=== PATIENT | male | born 1950 | race Caucasian/White ===

== ENCOUNTER → 2017-03-12 | Outpatient (CLI) | payer OTHER ==
[~2017-03-12] MED LIST: ASPI-650 PO
[2017-03-12 10:47] LABS: BLOOD UREA NITROGEN 17 mg/dL (7-18)
== END | disposition home or self-care (01) ==
LOC: STAR 09:01
PROVIDERS: ATTEND Orthopaedic Surgery
DX: Z01.818 Encounter for other preprocedural examination (principal); R94.31 Abnormal electrocardiogram [ECG] [EKG]; M17.11 Unilateral primary osteoarthritis, right knee
CPT/HCPCS: 36415; 80048; 81003; 85025; 87081; 93005

== ENCOUNTER 2017-03-23 05:36 | Inpatient (IN) | payer OTHER ==
[~2017-03-23] VITALS: Ht 172.7 cm; Wt 80.0 kg
[2017-03-23] MEDS ORDERED: LACTATED RINGERS 1,000 ML IV SCH (06:07)
[2017-03-23] MEDS ORDERED: ROPIvacaine/PF 0.5%, 30 ML ONE (06:24)
[2017-03-23] MEDS ORDERED: KETOROLAC 60 MG/2 ML ONE ×2 (06:30→08:33)
[2017-03-23] MEDS ORDERED: TRANEXAMIC ACID 100 MG/ML, 10ML ONE (06:31)
[2017-03-23] MEDS ORDERED: VANCOMYCIN 1,000 MG ONE (06:31)
[2017-03-23] MEDS ORDERED: ROPIvacaine/PF 0.2%, 20 ML ONE ×2 (06:31→08:33)
[2017-03-23] MEDS ORDERED: EPINEPHRINE 1 MG/ML, 1ML ONE ×2 (06:31→08:33)
[2017-03-23] MEDS ORDERED: FENTANYL PF 250 MCG/5ML ONE (06:32)
[2017-03-23] MEDS ORDERED: MIDAZOLAM 1 MG/ML, 2ML ONE (06:32)
[2017-03-23] MEDS ORDERED: ONDANSETRON 2MG/ML, 2ML ONE (07:07)
[2017-03-23] MEDS ORDERED: DEXAMETHASONE 4 MG/ML, 1ML ONE (07:07)
[2017-03-23] MEDS ORDERED: CEFAZOLIN 1,000 MG ONE (07:07)
[2017-03-23] MEDS ORDERED: PROPOFOL 10 MG/ML, 20ML ONE (07:07)
[2017-03-23] MEDS ORDERED: hydrALAzine 20 MG/ML, 1ML IV PRN (08:00)
[2017-03-23] MEDS ORDERED: MEPERIDINE/PF 25MG/0.5ML IVPush PRN (08:00)
[2017-03-23] MEDS ORDERED: METOPROLOL 1 MG/ML, 5ML IV PRN (08:00)
[2017-03-23] MEDS ORDERED: ALBUTEROL SULFATE 2.5 MG/3 ML NPPB PRN (08:00)
[2017-03-23] MEDS ORDERED: ACETAMINOPHEN 325 MG TABLET PO PRN (08:00)
[2017-03-23] MEDS ORDERED: MIDAZOLAM 1 MG/ML, 2ML IV PRN (08:00)
[2017-03-23] MEDS ORDERED: OXYcodone 5 MG/5 ML ORAL.SOL UDC PO PRN (08:00)
[2017-03-23] MEDS ORDERED: HYDROmorphone 1 MG/ML, 1ML IV PRN ×2 (08:00→09:00)
[2017-03-23] MEDS ORDERED: ONDANSETRON 2MG/ML, 2ML IVPush PRN (08:00)
[2017-03-23] MEDS ORDERED: LABETALOL 5MG/ML, 20ML IV PRN (08:00)
[2017-03-23] MEDS ORDERED: FENTANYL PF 100 MCG/2ML IV PRN (08:00)
[2017-03-23] MEDS ORDERED: EPHEDRINE 50 MG/ML, 1ML IVPush PRN (08:00)
[2017-03-23] MEDS ORDERED: PROMETHAZINE 25 MG/ML, 1ML IV PRN (08:00)
[2017-03-23] MEDS ORDERED: SODIUM CHLORIDE 0.9% 50 ML ONE (08:33)
[2017-03-23] MEDS ORDERED: PROMETHAZINE 12.5 MG SUPP PR PRN (09:00)
[2017-03-23] MEDS ORDERED: ONDANSETRON 2MG/ML, 2ML IV PRN (09:00)
[2017-03-23] MEDS ORDERED: DIAZEPAM 5 MG TABLET PO PRN (09:00)
[2017-03-23] MEDS ORDERED: ONDANSETRON 4 MG TABLET PO PRN (09:00)
[2017-03-23] MEDS ORDERED: SENNA/DOCUSATE TABLET PO PRN (09:00)
[2017-03-23] MEDS ORDERED: OXYcodone IR 5MG TABLET PO PRN (09:00)
[2017-03-23] MEDS: OXYcodone IR 5MG TABLET PO SCH ×4 (09:00→22:32)
[2017-03-23] MEDS ORDERED: MAGNESIUM HYDROXIDE 8%, 30ML UDC PO PRN (09:00)
[2017-03-23] MEDS ORDERED: ALUMINUM/MAG/SIMETHICONE 30 ML UDC PO PRN (09:00)
[2017-03-23] MEDS ORDERED: BISACODYL 10 MG SUPP PR PRN (09:00)
[2017-03-23] MEDS ORDERED: SCOPOLAMINE PATCH, 1.5MG PATCH.TD72 TD SCH (09:00)
[2017-03-23] MEDS ORDERED: PROMETHAZINE 25 MG/ML, 1ML IM PRN (09:00)
[2017-03-23] MEDS ORDERED: DIPHENHYDRAMINE 25 MG CAPSULE PO PRN (09:00)
[2017-03-23] MEDS: PREGABALIN 75 MG CAPSULE PO SCH ×2 (09:00→21:01)
[2017-03-23] MEDS: ACETAMINOPHEN 650 MG/20.3 ML UDC PO SCH ×4 (09:00→22:32)
[2017-03-23] MEDS ORDERED: ZOLPIDEM 5MG TABLET PO PRN (09:00)
[2017-03-23] MEDS ORDERED: TRANEXAMIC ACID 1,000 MG in SODIUM CHLORIDE 0.9% 100 ML IVPB ONE (09:15)
[2017-03-23] MEDS ORDERED: OXYcodone 5 MG/5 ML ORAL.SOL UDC ONE (10:21)
[2017-03-23] MEDS ORDERED: ACETAMINOPHEN 650 MG/20.3 ML UDC ONE (10:21)
[2017-03-23] MEDS: DOCUSATE 100 MG CAPSULE PO SCH ×2 (11:17→21:02)
[2017-03-23] MEDS: MULTIVITAMINS/MINERALS TABLET PO SCH (11:17)
[2017-03-23] MEDS: TAMSULOSIN 0.4 MG CAP.ER.24H PO SCH (11:18)
[2017-03-23] MEDS: D5%-0.45% NACL 1,000 ML IV SCH ×2 (12:45→16:25)
[2017-03-23 14:16] VITALS: BP 129/76
[2017-03-23] MEDS: CEFAZOLIN PMX 2GM/50ML 50 ML IVPB SCH (16:29)
[2017-03-23 19:44] VITALS: BP 110/68
[2017-03-23 23:26] VITALS: BP 94/60
[2017-03-24] MEDS: CEFAZOLIN PMX 2GM/50ML 50 ML IVPB SCH (00:43)
[2017-03-24] MEDS: D5%-0.45% NACL 1,000 ML IV SCH ×2 (00:54→08:30)
[2017-03-24] MEDS: OXYcodone IR 5MG TABLET PO SCH ×3 (02:41→10:36)
[2017-03-24] MEDS: ACETAMINOPHEN 650 MG/20.3 ML UDC PO SCH ×3 (02:41→10:36)
[2017-03-24 03:18] VITALS: BP 93/60
[2017-03-24] MEDS ORDERED: DEXAMETHASONE 4 MG/ML, 1ML IVPush SCH (06:00)
[2017-03-24] MEDS ORDERED: ASPIRIN 81 MG TABLET EC PO SCH (06:00)
[2017-03-24 07:35] VITALS: BP 98/62
[2017-03-24] MEDS: TAMSULOSIN 0.4 MG CAP.ER.24H PO SCH (08:27)
[2017-03-24] MEDS: DOCUSATE 100 MG CAPSULE PO SCH (08:27)
[2017-03-24] MEDS: MULTIVITAMINS/MINERALS TABLET PO SCH (08:28)
[2017-03-24] MEDS: PREGABALIN 75 MG CAPSULE PO SCH (08:28)
[2017-03-24] MEDS ORDERED: KETOROLAC 30 MG/1 ML IV SCH (09:00)
[2017-03-24] MEDS ORDERED: OXYC5CAP4 PO (12:30)
[2017-03-24 12:47] VITALS: BP 111/66
== END 2017-03-24 14:05 | disposition home or self-care (01) | DRG 470 ==
LOC: ORIP 05:36 → 4NOR 11:06
PROVIDERS: ADMIT Orthopaedic Surgery; ATTEND Orthopaedic Surgery
PROC: 0SRC0J9 Replacement of Right Knee Joint with Synthetic Substitute, Cemented, Open Approach (ICD-10-PCS; principal; 2017-03-23 07:30)
DX: M17.11 Unilateral primary osteoarthritis, right knee (principal); M67.461 Ganglion, right knee
CPT/HCPCS: 36415; 85014; 85018; C1713; J0171; J0690; J1100; J1885; J2250; J2405; J2704; J2795; J3010; J3370; C1776; J7120